=== PATIENT | female | born 1985 | race Caucasian/White ===

== ENCOUNTER 2017-07-06 13:26 | Emergency (ER) | payer MEDICAID, OTHER ==
[~2017-07-06 13:26] MED LIST: L-NO1TBD7 PO; SULF1TAB47 PO; ULTR50TA PO
[2017-07-06 13:44] VITALS: BP 120/64; PULSE 123; RESP 18; TEMP 98.1; O2SAT 96
[2017-07-06] MEDS ORDERED: birth control (13:57)
[2017-07-06] MEDS ORDERED: PROMSYP3 PO (14:14)
[2017-07-06] MEDS ORDERED: OSEL75 PO (14:14)
--- NOTE | 2017-07-06 14:15 | PD ---
HPI Chief Complaint: Cold / Flu Symptoms Time Seen by Provider: 13:52 Travel History International Travel<30 days: No Contact w/Intl Traveler<30days: No Traveled to known affect area: No History of Present Illness HPI 32-year-old female here with fever, chills, body aches times one day. Patient' s son has influenza B. They live in the same home. Symptom severity is moderate. She reports subjective fevers which are improved with over-the- counter Tylenol and ibuprofen. No aggravating factors. PFSH Past Medical History Medical History: Denies Significant Hx Diminished Hearing: No Tetanus Vaccination: Unknown Influenza Vaccination: No ?: Not LMP: 2 weeks ago Social History Alcohol Use: No Tobacco Use: No Substance Use: No Allergies-Medications (Allergen,Severity, Reaction): Coded Allergies: aspirin (Unverified Allergy, Intermediate, RASH, 07/06/17) codeine (Unverified Allergy, Intermediate, RASH, 07/06/17) penicillin G (Unverified Allergy, Intermediate, RASH, 07/06/17) Reported Meds & Prescriptions Reported Meds & Active Scripts Active Reported [ control] Review of Systems General / Constitutional: Positive: Fever Eyes: No: Visual changes HENT: Positive: Congestion, No: Headaches Cardiovascular: No: Chest Pain or Discomfort Respiratory: Positive: Cough Gastrointestinal: No: Abdominal Pain Genitourinary: No: Dysuria Musculoskeletal: Positive: Myalgias Skin: No Rash Physical Exam Narrative GENERAL: Alert well-appearing 32-year-old female. SKIN: Warm and dry. No rash HEAD: Normocephalic. EYES: No injection or drainage. NECK: Supple, trachea midline. No meningismus CARDIOVASCULAR: Regular rate and rhythm RESPIRATORY: Breath sounds equal bilaterally. No accessory muscle use. GASTROINTESTINAL: Abdomen soft, non-tender, nondistended. MUSCULOSKELETAL: No cyanosis, or edema. BACK: Nontender without obvious deformity. No CVA tenderness. Data Data Last Documented VS Vital Signs Date Time Temp Pulse Resp B/P (MAP) Pulse Ox O2 Delivery O2 Flow Rate FiO2 07/06/17 13:44 98.1 123 18 120/64 (82) 96 MDM Medical Decision Making Medical Screen Exam Complete: Yes Emergency Medical Condition: Yes Differential Diagnosis Influenza, URI, bronchitis Narrative Course 32-year-old female with flulike symptoms and exposure to the flu. He is nontoxic appearing. Vital signs are stable. She'll be treated for influenza. Diagnosis Primary Impression: Influenza Referrals: Primary Care Physician Additional Instructions: Tamiflu as directed. [id number] ibuprofen and Tylenol for fever and pain. Promethazine DM needed for cough Drink plenty of fluids. Scripts Dextromethorphan-Promethazine Liq (Promethazine-Dextromethorphan Liq) 6.25-15 Mg /5 Ml Syrp 10 ML PO Q6HR Y for COUGH, #120 ML Prov: Sierra Kim 07/06/17 Oseltamivir (Tamiflu) 75 Mg Cap 75 MG PO BID for Mgmt Viral Infection for 5 Days, #10 CAP 0 Refills Prov: Sierra Kim 07/06/17 Disposition: 01 DISCHARGE HOME Condition: Stable Sierra Kim Jul 06, 2017 14:15
== END 2017-07-06 14:40 | disposition home or self-care (01) ==
LOC: PHEFT 13:26
DX: J11.1 Influenza due to unidentified influenza virus with other respiratory manifestations (principal); R50.9 Fever, unspecified; M79.1 Myalgia
CPT/HCPCS: 99284